=== PATIENT | female | born 2000 | race Caucasian/White ===

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

== ENCOUNTER 2021-02-10 20:31 | Emergency (ER) | payer OTHER ==
[~2021-02-10] VITALS: Ht 167.6 cm; Wt 88.5 kg
[2021-02-10 20:33] VITALS: BP 161/84
--- NOTE | 2021-02-10 22:40 | NUR ---
PT TAKEN TO BED #12
[2021-02-10 22:43] LABS: BASOPHILS # (AUTO) 0.1 K/uL (0.00-0.22); BASOPHILS % (AUTO) 0.4 % (0.0-2.0); EOSINOPHILS # (AUTO) 0.2 K/uL (0-0.4); EOSINOPHILS % (AUTO) 1.6 % (0.0-4.0); HEMATOCRIT 31.8 % (36-48); HEMOGLOBIN 10.2 g/dL (12.0-16.0); LYMPHOCYTES % (AUTO) 29.4 % (20.5-51.1); MEAN CORPUSCULAR HEMOGLOBIN 25 pg (27-31); MEAN CORPUSCULAR HGB CONC 32 g/dL (33-37); MONOCYTES # (AUTO) 0.6 K/uL (0.8-1.0); MONOCYTES % (AUTO) 4.8 % (1.7-9.3); NEUTROPHILS # (AUTO) 8.6 K/uL (1.8-7.7); NEUTROPHILS % (AUTO) 63.8 % (42.2-75.2); PLATELET COUNT (AUTO) 426 K/uL (140-450); RED BLOOD CELL COUNT(AUTO) 4.08 MIL/uL (4.20-5.40); WHITE BLOOD COUNT (AUTO) 13.5 K/uL (4.5-11.0)
--- NOTE | 2021-02-10 22:52 | NUR ---
US AT BEDSIDE PELVIC EXAM SET PLACED AT BESIDE.
[2021-02-10 23:04] LABS: ALBUMIN 3.6 g/dL (3.4-5.0); ANION GAP 11.2 (8-16); CARBON DIOXIDE 26.9 mmol/L (21-32); CREATININE 0.7 mg/dL (0.6-1.3); POTASSIUM 4.1 mmol/L (3.5-5.1); TOTAL BILIRUBIN 0.2 mg/dL (0.0-1.0)
--- NOTE | 2021-02-11 00:48 | NUR ---
Female Boiler Plant Operator accompanied female patient for Pelvic Exam.
--- NOTE | 2021-02-11 01:00 | NUR ---
patient agreed to transvaginal ultrasound at this time, ultrasound advised.
--- NOTE | 2021-02-11 01:17 | NUR ---
ULTRASOUND AT BEDSIDE.
[2021-02-11 04:37] VITALS: BP 108/51
--- NOTE | 2021-02-11 04:37 | NUR ---
patient cleared at this time for discharge. denies any further complaints or concerns. advised to follow up with pcp and return if condition worsens. ultrasound report provided in discharge teaching.
== END 2021-02-11 04:37 | disposition home or self-care (01) ==
LOC: MED 20:31
DX: N93.9 Abnormal uterine and vaginal bleeding, unspecified (principal)
CPT/HCPCS: 36415; 76830; 80053; 81002; 81025; 85025; 86900; 86901; 99284; Q0092

== ENCOUNTER 2021-06-16 09:30 | Emergency (ER) | payer OTHER ==
[~2021-06-16] VITALS: Ht 167.6 cm; Wt 104.8 kg
[2021-06-16 09:43] VITALS: BP 154/87
--- NOTE | 2021-06-16 10:25 | NUR ---
21 Y/O FEMALE C/O R EAR LOBE PAIN XTHIS MORNING. PT REPORTS HAVING NEW PIERCING X3 WEEKS AGO AND WOKE UP THIS MORNING TO PAIN, REDNESS, SWELLING AND SCAB COVERING EARRING. PT RATES PAIN 9/10 THAT SHE DESCRIBES THROBBING AND "FEELS LIKE ITS ON FIRE". PT REPORTS FEVER OF 101 THIS MORNING AND TOOK TYLENOL, FEVER WENT AWAY BUT PAIN IS STILL PRESENT. PT REPORTS CLEANING EARRING DIRECTED. PT A/O X4 WITH EVEN AND UNLABORED RESPIRATIONS. PMH:DENIES NKDA
--- NOTE | 2021-06-16 10:43 | NUR ---
DR ELIAS AT BEDSIDE EVALUATING PT
[2021-06-16] MEDS ORDERED: LIDOCAINE MPF 1% 10 MG/ML VIAL INJ ONE (11:00)
--- NOTE | 2021-06-16 11:50 | NUR ---
DR ELIAS AT BEDSIDE FOR PROCEDURE
[2021-06-16] MEDS ORDERED: CEPH-588 PO (11:58)
[2021-06-16] MEDS ORDERED: NAPR-1704 PO (11:58)
[2021-06-16 12:08] VITALS: BP 132/73
--- NOTE | 2021-06-16 12:08 | NUR ---
Patient discharged with v/s stable. Written and verbal after care instructions ABOUT SKIN FOREIGN BODT AND CELLULITIS given and explained. Patient alert, oriented and verbalized understanding of instructions. Ambulatory with steady gait. All questions addressed prior to discharge. ID band removed. Patient advised to follow up with PMD. Rx of KEFLEX AND NAPROXEN given. Patient educated on indication of medication including possible reaction and side effects. Opportunity to ask questions provided and answered.
== END 2021-06-16 12:08 | disposition home or self-care (01) ==
LOC: MED 09:30
DX: S00.451A Superficial foreign body of right ear, initial encounter (principal); X58.XXXA Exposure to other specified factors, initial encounter; Y93.89 Activity, other specified; Y92.89 Other specified places as the place of occurrence of the external cause; Y99.8 Other external cause status
CPT/HCPCS: 10120; 99284; J2001

== ENCOUNTER 2021-11-17 15:49 | Observation (INO) | payer OTHER ==
[~2021-11-17] VITALS: Ht 167.6 cm; Wt 101.6 kg
[~2021-11-17 15:49] MED LIST: CEPH-588 PO; NAPR-1704 PO
[2021-11-17 15:53] VITALS: BP 134/68
--- NOTE | 2021-11-17 16:01 | NUR ---
Holly araujo in [facility] - 11/17/21 at 1603 by MED1 PT AMB TO BED 1.
--- NOTE | 2021-11-17 16:02 | NUR ---
PT AMBULATED TO ER BED 8
[2021-11-17] MEDS ORDERED: NACL 0.9% 1,000 ML IV ONE (16:05)
--- NOTE | 2021-11-17 16:17 | NUR ---
21YO FEMALE PT C/O VAGINAL BLEEDING X5 WEEKS. PT STATES INITIAL BLEEDING STARTED September AND HAS BEEN COMSISTENT SINCE, NOTES 1IN BLOOD CLOTS. ALSO C/O CRAMPING 10/10 PELVIC PAIN ALONG WITH NEW ONSET OF 7/10 TIGHTNESS IN CHEST XTODAY. STATES MILD RELIEF AFTER TAKING IBUPROFEN. MILD DIZZINESS, DENIES N/V/D OR SOB. PT HAS PENDING EQUINE MANAGER APPT ON Nov BUT WAS TOLD BY PCP TO COME TO ER IF SHE HAD ONSET OF CHEST PAIN. NOTES PREVIOUS SIMILIAR SYMPTOMS THAT LASTED FROM December TO February. REPORTS INCREASE IN FATIGUENESS AND SOB WHEN DOING " SIMPLE ACTIVITIES". PT AAOX4, RESPIRATIONS EVEN AND UNLABORED AND ON [employer] PROMOTER. . AMBULATORY W/ STEADY GAIT. BED AT LOWEST POSITION, BED RAIL UP X2. HX: DENIES NKA
[2021-11-17 16:32] LABS: BASOPHILS # (AUTO) 0.1 K/uL (0.00-0.22); BASOPHILS % (AUTO) 0.6 % (0.0-2.0); EOSINOPHILS # (AUTO) 0.1 K/uL (0-0.4); EOSINOPHILS % (AUTO) 0.8 % (0.0-4.0); HEMATOCRIT 21.8 % (36-48); LYMPHOCYTES # (AUTO) 3.6 K/uL (2.5-16.5); LYMPHOCYTES % (AUTO) 24.1 % (20.5-51.1); MEAN CORPUSCULAR HEMOGLOBIN 18 pg (27-31); MEAN CORPUSCULAR HGB CONC 30 g/dL (33-37); MEAN CORPUSCULAR VOLUME 61.2 fL (80-94); MONOCYTES # (AUTO) 0.6 K/uL (0.8-1.0); MONOCYTES % (AUTO) 4.2 % (1.7-9.3); NEUTROPHILS # (AUTO) 10.4 K/uL (1.8-7.7); NEUTROPHILS % (AUTO) 70.3 % (42.2-75.2); PLATELET COUNT (AUTO) 517 K/uL (140-450); RED BLOOD CELL COUNT(AUTO) 3.56 MIL/uL (4.20-5.40); RED CELL DISTRIBUTION WIDTH 20.4 % (11.6-13.7); WHITE BLOOD COUNT (AUTO) 14.8 K/uL (4.5-11.0)
[2021-11-17 16:41] LABS: HEMOGLOBIN 6.4 g/dL (12.0-16.0)
--- NOTE | 2021-11-17 16:42 | NUR ---
MD SNOW AT BEDSIDE
[2021-11-17 16:51] LABS: ANION GAP 12.8 (8-16); CARBON DIOXIDE 23.2 mmol/L (21-32); CREATININE 0.7 mg/dL (0.6-1.3)
--- NOTE | 2021-11-17 17:12 | NUR ---
RAD AT BEDSIDE
[2021-11-17 17:22] LABS: APPEARANCE,URINE SL CLOUDY (CLEAR); BILIRUBIN,URINE NEGATIVE (NEGATIVE); BLOOD, URINE 3+ (NEGATIVE); COLOR,URINE AMBER (YELLOW); LEUKOCYTE ESTERASE ,URINE TRACE (NEGATIVE); NITRITE, URINE NEGATIVE (NEGATIVE); UGLUCOSE NEGATIVE (NEGATIVE)
[2021-11-17] MEDS ORDERED: FERR325E14 PO (17:24)
[2021-11-17] MEDS ORDERED: VITD400 PO (17:25)
[2021-11-17 17:49] LABS: RBC,URINE 11-20 (MOD) /HPF (0-5)
[2021-11-17 17:50] LABS: WBC,URINE 0-5 /HPF (0-5)
[2021-11-17 17:51] LABS: OTHER CASTS, URINE None Seen /LPF (None Seen)
[2021-11-17] MEDS ORDERED: MAGNESIUM OXIDE 400 MG TAB PO PRN (18:15)
[2021-11-17] MEDS ORDERED: MORPHINE SULFATE 4 MG/ML SYR IVP PRN (18:15)
[2021-11-17] MEDS ORDERED: ONDANSETRON 4 MG/2 ML VIAL IVP PRN (18:15)
[2021-11-17] MEDS ORDERED: ACETAMINOPHEN 325 MG TAB PO PRN (18:15)
[2021-11-17] MEDS ORDERED: KCL 20 MEQ/WATER INJ PREMIX 200 ML IV PRN (18:15)
[2021-11-17] MEDS ORDERED: POTASSIUM CHLORIDE 10 MEQ TABER PO PRN (18:15)
[2021-11-17] MEDS ORDERED: HYDROcodone/APAP 5/325 MG 1 TAB TAB PO PRN (18:15)
[2021-11-17] MEDS ORDERED: MAG SULF 2000 MG/WATER PREMIX 50 ML IV PRN (18:15)
--- NOTE | 2021-11-17 19:28 | NUR ---
REPORT GIVEN TO LAWRENCE MILLER. ALL QUESTION ANSWERED. TRANSFER OF CARE AT THIS TIME
--- NOTE | 2021-11-17 20:39 | NUR ---
2036 - pt reported pain and itching at site , right ac. vss . transfusion stopped. doctor notified . will carry out orders, will continue to monitor
[2021-11-17] MEDS ORDERED: diphenhydrAMINE 50 MG/ML VIAL IVP ONE (20:40)
--- NOTE | 2021-11-17 21:08 | NUR ---
Patient will be admitted to care of [facility]. Admited to MED-SURG. Will go to rooM 2108. Belongings list completed. Report to JAGDEEP.
--- NOTE | 2021-11-17 21:08 | NUR ---
Chart checked and completed.
--- NOTE | 2021-11-17 21:15 | NUR ---
RECEIVED PATIENT FROM ER NURSE VIA [facility] FOR CONTINUITY OF CARE. PATIENT IS ALERT ORIENTED X4, IV ON RIGHT AC INTACT AND PATENT, ADMITTED FOR VAGINAL BLEEDING, 1 UNIT PRBC RUNNING AT THIS TIME, NO ADVERSE REACTIONS NOTED.WILL CONTINUE TO MONITOR
[2021-11-18] VITALS: BP 120/52
--- NOTE | 2021-11-18 01:00 | NUR ---
BLOOD TRANSFUSION FINISHED,NO ADVERSE REACTIONS NOTED
[2021-11-18 03:54] LABS: HEMATOCRIT 23.6 % (36-48)
[2021-11-18 04:00] VITALS: BP 116/69
--- NOTE | 2021-11-18 04:00 | NUR ---
MESSAGED DR ED SCHMID RESULT OF HGB OF 7.0, AWAITING RESPONSE
--- NOTE | 2021-11-18 06:00 | NUR ---
PATIENT ASLEEP,NO S/SX OF DISTRESS NOTED
[2021-11-18 07:12] LABS: BASOPHILS % (AUTO) 0.4 % (0.0-2.0); EOSINOPHILS # (AUTO) 0.2 K/uL (0-0.4); EOSINOPHILS % (AUTO) 1.3 % (0.0-4.0); HEMATOCRIT 23.2 % (36-48); HEMOGLOBIN 7.2 g/dL (12.0-16.0); LYMPHOCYTES # (AUTO) 3.6 K/uL (2.5-16.5); LYMPHOCYTES % (AUTO) 30.5 % (20.5-51.1); MEAN CORPUSCULAR HEMOGLOBIN 20 pg (27-31); MEAN CORPUSCULAR HGB CONC 31 g/dL (33-37); MEAN CORPUSCULAR VOLUME 64.4 fL (80-94); MONOCYTES # (AUTO) 0.5 K/uL (0.8-1.0); MONOCYTES % (AUTO) 4.5 % (1.7-9.3); NEUTROPHILS # (AUTO) 7.4 K/uL (1.8-7.7); NEUTROPHILS % (AUTO) 63.3 % (42.2-75.2); PLATELET COUNT (AUTO) 431 K/uL (140-450); RED CELL DISTRIBUTION WIDTH 23.5 % (11.6-13.7); WHITE BLOOD COUNT (AUTO) 11.7 K/uL (4.5-11.0)
[2021-11-18 07:21] LABS: ALBUMIN 2.9 g/dL (3.4-5.0); CARBON DIOXIDE 25.1 mmol/L (21-32); CREATININE 0.8 mg/dL (0.6-1.3); MAGNESIUM 2.1 mg/dL (1.8-2.4); POTASSIUM 4.1 mmol/L (3.5-5.1); TOTAL BILIRUBIN 0.5 mg/dL (0.0-1.0)
--- NOTE | 2021-11-18 07:35 | NUR ---
RECEIVED REPORT FROM ROAD MACHINE RUNNER NURSE FOR CONTINUITY OF CARE. PATIENT LYING DOWN IN BED SLEEPING, AROUSABLE BY VOICE. NO DISTRESS NOTED. DENIES ANY PAIN. CONTINUES TO FEEL DIZZINESS. IV SITE INTACT, PATENT, ON SALINE LOCK. AAO4, ROOM AIR. REVIEWED PLAN OF CARE WITH PATIENT. SAFETY MEASURES IN PLACE, CALL LIGHT WITHIN REACH. WILL CONTINUE TO MONITOR.
[2021-11-18 08:00] VITALS: BP 105/56
--- NOTE | 2021-11-18 08:44 | NUR ---
COMPLAINS OF NAUSEA, ZOFRAN GIVEN AT THIS TIME. OTHER SCHEDULED MEDICATIONS DUE GIVEN. WILL CONTINUE TO MONITOR.
[2021-11-18] MEDS ORDERED: medroxyPROGESTERone 10 MG TAB PO SCH (09:00)
--- NOTE | 2021-11-18 09:20 | NUR ---
PATIENT HAS BEEN SCREENED AND CATEGORIZED LOW NUTRITION RISK. PATIENT WILL BE SEEN WITHIN 7 DAYS OF ADMISSION. 11/25/[address] BEBO [address]
--- NOTE | 2021-11-18 11:50 | NUR ---
PATIENT LYING DOWN IN BED, SLEEPING, AROUSABLE BY VOICE. NO DISTRESS NOTED. DENIES PAIN. AWAITING FOR 1 UNIT PRBC. WILL CONTINUE TO MONITOR.
--- NOTE | 2021-11-18 14:24 | NUR ---
DC PLANNING CEM MET WITH PATIENT AT BEDSIDE TO COMPLETE ASSESSMENT. PATIENT REPORTS RESIDING AT THE ADDRESS ON FILE WITH HER PARENTS. PATIENT IDENTIFIES ARIK KUHN, MOTHER [phone] EMERGENCY CONTACT AND MDM. PATIENT DENIES HAVING AD IN PLACE AND DECLINED AD OFFERED BY CEM. PATIENT REPORTS MEETING WITH , NEEDED. LAST VISIT; 11/16. PATIENT PROVIDED SW W/PERMISSION TO SCHEDULE FOLLOW UP APPT, ONCE CLEARED FOR DC. PATIENT REPORTS TAKING VITAMIN D AND IRON PILLS. PATIENT REPORTS PICKING UP MEDICATION FROM [employer] ON [address] IN [place], WHEN NEEDED. PATIENT DENIES BARRIERS IN ACCESSING MEDICATIONS. PATIENT REPORTS ADEQUATE FOOD SOURCE AND APPROPRIATE SUPPORT SYSTEM. PATIENT REPORT BEING INDEPENDENT IN ALL ACTIVITIES. PATIENT REPORTS PREVIOUS PSYCHIATRIC HOSPITALIZATION WHEN IN HS. PATIENT DENIES CURRENT SI/HI. PATIENT DENIES FORMAL MENTAL HEALTH DX. PATIENT DENIES SA HX. PATIENT REPORTS DC PLAN IS TO RETURN HOME WITH FAMILY PROVIDING TRANSPORTATION AND NEEDED CARE, IF REQUIRED. Addendum: 11/19/21 at 1012 by Meme Osborne CEM OUTREACHED TO PATIENTS PCP OFFICE AT [phone]. CEM SPOKE WITH FRANSISCO, VIRTUAL APPT SCHEDULED FOR 11/25/21 BETWEEN 2-[address] CARTER. FRANSISCO REPORTED OFFICE WOULD CALL PATIENT WITH EXACT TIME OF VIRTUAL APPT. PATIENT WAS PROVIDED WITH APPT DETAILS THAT INCLUDED; DATE, TIME, PHONE NUMBER AND
[2021-11-18] MEDS ORDERED: diphenhydrAMINE 50 MG/ML VIAL IVP SCH (15:00)
--- NOTE | 2021-11-18 15:00 | NUR ---
1 UNIT PRBC STARTED. WILL CONTINUE TO MONITOR PER PROTOCOL.
[2021-11-18 16:00] VITALS: BP 99/62
--- NOTE | 2021-11-18 17:30 | NUR ---
1 UNIT PRBC COMPLETED. NO REACTIONS NOTED. WILL CONTINUE TO MONITOR.
--- NOTE | 2021-11-18 18:05 | NUR ---
DISCHARGE INSTRUCTIONS PROVIDED TO PATIENT IN PREFERRED LANGUAGE OF PORTUGUESE. INSTRUCTIONS ON FOLLOW-UP WITH PCP AND OBGYN PROVIDED, MEDICATION REGIMEN AND SIDE EFFECTS, AND DIET REGIMEN. ANSWERED ALL OF PATIENT'S QUESTIONS REGARDING DISCHARGE. IV SITE REMOVED WITH MINIMAL BLOOD AND LUMEN COMPLETELY INTACT. PATIENT'S MOTHER AT BEDSIDE READY TO TAKE PATIENT HOME. ESCORTED PATIENT DOWN TO LOBBY VIA STEADY AMBULATION. PATIENT DISCHARGED AT THIS TIME IN STABLE CONDITION.
== END 2021-11-18 18:05 | disposition home or self-care (01) ==
LOC: MED 15:49 → MMU 18:18 → MTU 20:44
PROVIDERS: ADMIT Hospitalist; ATTEND Hospitalist
DX: N93.9 Abnormal uterine and vaginal bleeding, unspecified (principal); Z20.822 Contact with and (suspected) exposure to COVID-19; N92.1 Excessive and frequent menstruation with irregular cycle; D62 Acute posthemorrhagic anemia; R42 Dizziness and giddiness; E66.01 Morbid (severe) obesity due to excess calories; Z79.899 Other long term (current) drug therapy
CPT/HCPCS: 36415; 36430; 71045; 80048; 80053; 81001; 83735; 85018; 85025; 86886; 86900; 86901; 86920; 87081; 87426; 96361; 96374; 96375; 99284; G0378; J1200; J2405; P9016; 93005

== ENCOUNTER 2022-06-26 12:46 | Emergency (ER) | payer OTHER ==
[~2022-06-26] VITALS: Ht 165.1 cm; Wt 96.6 kg
[~2022-06-26 12:46] MED LIST changes: -CEPH-588 PO; +FERR325E14 PO; -NAPR-1704 PO; +VITD400 PO
[2022-06-26 12:51] VITALS: BP 134/74
--- NOTE | 2022-06-26 12:57 | NUR ---
pt ambulatory to bed 11
[2022-06-26] MEDS ORDERED: ONDANSETRON 4 MG ODT PO ONE (13:40)
[2022-06-26 14:03] LABS: BASOPHILS # (AUTO) 0.3 K/uL (0.00-0.22); BASOPHILS % (AUTO) 2.5 % (0.0-2.0); EOSINOPHILS # (AUTO) 0.1 K/uL (0-0.4); EOSINOPHILS % (AUTO) 0.6 % (0.0-4.0); HEMATOCRIT 35.2 % (36-48); HEMOGLOBIN 10.8 g/dL (12.0-16.0); LYMPHOCYTES # (AUTO) 2.1 K/uL (2.5-16.5); LYMPHOCYTES % (AUTO) 17.6 % (20.5-51.1); MEAN CORPUSCULAR HEMOGLOBIN 22 pg (27-31); MEAN CORPUSCULAR HGB CONC 31 g/dL (33-37); MEAN CORPUSCULAR VOLUME 72.4 fL (80-94); MONOCYTES # (AUTO) 0.9 K/uL (0.8-1.0); MONOCYTES % (AUTO) 7.6 % (1.7-9.3); NEUTROPHILS # (AUTO) 8.6 K/uL (1.8-7.7); NEUTROPHILS % (AUTO) 71.7 % (42.2-75.2); PLATELET COUNT (AUTO) 387 K/uL (140-450); RED BLOOD CELL COUNT(AUTO) 4.86 MIL/uL (4.20-5.40); RED CELL DISTRIBUTION WIDTH 17.3 % (11.6-13.7)
[2022-06-26 14:51] LABS: ALBUMIN 3.1 g/dL (3.4-5.0); ANION GAP 13.6 (8-16); ASPARTATE AMINOTRANSFERASE 27 U/L (15-37); CHLORIDE 107 mmol/L (98-107); CREATININE 0.8 mg/dL (0.6-1.3); GFR ARICAN-AMERICAN 116 mL/min (>90); GLUCOSE 102 mg/dL (74-106); POTASSIUM 3.6 mmol/L (3.5-5.1); SODIUM SERUM 142 mmol/L (136-145); TOTAL BILIRUBIN 0.4 mg/dL (0.0-1.0); UREA NITROGEN, BLOOD 10 mg/dL (7-18)
[2022-06-26] MEDS ORDERED: ONDA-188 SL (15:05)
[2022-06-26] MEDS ORDERED: FERR325E14 PO (15:05)
[2022-06-26 15:15] VITALS: BP 134/74
--- NOTE | 2022-06-26 15:16 | NUR ---
Patient discharged with v/s stable. Written and verbal after care instructions given and explained. Patient alert, oriented and verbalized understanding of instructions. Ambulatory with steady gait. All questions addressed prior to discharge. ID band removed. Patient advised to follow up with PMD. Rx of ZOFRAN, FERROUS SULFATE (SENT) given. Patient educated on indication of medication including possible reaction and side effects. Opportunity to ask questions provided and answered.
== END 2022-06-26 15:13 | disposition home or self-care (01) ==
LOC: MED 12:46
DX: D64.9 Anemia, unspecified (principal); F41.0 Panic disorder [episodic paroxysmal anxiety]; Z79.899 Other long term (current) drug therapy
CPT/HCPCS: 36415; 80053; 84484; 85025; 93005; 99284; Q0162

== ENCOUNTER 2022-12-22 | Emergency (ER) | payer OTHER ==
[~2022-12-22] VITALS: Ht 167.6 cm; Wt 91.6 kg
[~2022-12-22] MED LIST changes: +ONDA-188 SL
[2022-12-22 00:04] VITALS: BP 124/64; PULSE 95; RESP 16; TEMP 97.3; O2SAT 100
[2022-12-22] MEDS ORDERED: KETOROLAC 60 MG/2 ML VIAL IM ONE (01:35)
[2022-12-22] MEDS ORDERED: IBUP-2213 PO (01:42)
[2022-12-22] MEDS ORDERED: ACET-8905 PO ×2 (01:42→01:43)
== END 2022-12-22 01:52 | disposition home or self-care (01) ==
LOC: MED
DX: S83.8X2A Sprain of other specified parts of left knee, initial encounter (principal); X58.XXXA Exposure to other specified factors, initial encounter; Y93.89 Activity, other specified; Y92.89 Other specified places as the place of occurrence of the external cause; Y99.8 Other external cause status
CPT/HCPCS: 73562; 81025; 96372; 99283; J1885

== ENCOUNTER 2023-10-12 03:50 | Emergency (ER) | payer OTHER ==
[~2023-10-12] VITALS: Ht 165.1 cm; Wt 87.5 kg
[~2023-10-12 03:50] MED LIST changes: +ACET-8905 PO; +IBUP-2213 PO
[2023-10-12 03:53] VITALS: BP 110/62; PULSE 72; RESP 16; TEMP 97.4; O2SAT 100
[2023-10-12] MEDS: NACL 0.9% 1,000 ML IV ONE (05:27)
[2023-10-12] MEDS: MORPHINE SULFATE 4 MG/ML SYR IVP ONE (05:53)
[2023-10-12 05:54] LABS: BASOPHILS # (AUTO) 0.1 K/uL (0.00-0.22); BASOPHILS % (AUTO) 0.5 % (0.0-2.0); EOSINOPHILS # (AUTO) 0.2 K/uL (0-0.4); EOSINOPHILS % (AUTO) 1.3 % (0.0-4.0); HEMATOCRIT 38.4 % (36-48); HEMOGLOBIN 12.6 g/dL (12.0-16.0); LYMPHOCYTES # (AUTO) 3.8 K/uL (2.5-16.5); MEAN CORPUSCULAR HEMOGLOBIN 27 pg (27-31); MEAN CORPUSCULAR HGB CONC 33 g/dL (33-37); MEAN CORPUSCULAR VOLUME 82.7 fL (80-94); MONOCYTES # (AUTO) 0.7 K/uL (0.8-1.0); MONOCYTES % (AUTO) 6.2 % (1.7-9.3); NEUTROPHILS # (AUTO) 6.7 K/uL (1.8-7.7); PLATELET COUNT (AUTO) 272 K/uL (140-450); RED BLOOD CELL COUNT(AUTO) 4.64 MIL/uL (4.20-5.40); RED CELL DISTRIBUTION WIDTH 14.8 % (11.6-13.7); WHITE BLOOD COUNT (AUTO) 11.4 K/uL (4.8-10.8)
[2023-10-12 06:15] LABS: ANION GAP 14.1 (8-16); CALCIUM 8.8 mg/dL (8.5-10.1); CARBON DIOXIDE 22.7 mmol/L (21-32); CREATININE 0.6 mg/dL (0.6-1.3); POTASSIUM 3.8 mmol/L (3.5-5.1)
[2023-10-12 06:16] LABS: BILIRUBIN,URINE NEGATIVE (NEGATIVE); BLOOD, URINE NEGATIVE (NEGATIVE); COLOR,URINE YELLOW (YELLOW); LEUKOCYTE ESTERASE ,URINE TRACE (NEGATIVE); PH,URINE 6.5 (5.0-9.0); PROTEIN,URINE NEGATIVE (NEGATIVE); UGLUCOSE NEGATIVE (NEGATIVE); UROBILINOGEN,URINE 0.2 EU/dL (0.2 - 1)
[2023-10-12 06:17] LABS: ALBUMIN 3.3 g/dL (3.4-5.0); BILIRUBIN,DIRECT 0.1 mg/dL (0.0-0.3); TOTAL BILIRUBIN 0.3 mg/dL (0.0-1.0); TOTAL PROTEIN, SERUM 7.5 g/dL (6.4-8.2)
[2023-10-12 07:08] LABS: RBC,URINE 0-5 /HPF (0-5); SQUAMOUS EPITHELIAL CELL,UR 4-10 (MOD) /LPF (0-3 (FEW))
[2023-10-12 07:10] LABS: BACTERIA,URINE 1+ /HPF (None Seen); NITRITE, URINE POSITIVE (NEGATIVE); WBC,URINE 0-5 /HPF (0-5)
[2023-10-12 07:12] LABS: APPEARANCE,URINE SLIGHTLY HAZY (CLEAR)
[2023-10-12 07:20] VITALS: BP 128/50; PULSE 77; RESP 20; O2SAT 99
== END 2023-10-12 07:20 | disposition home or self-care (01) ==
LOC: MED 03:50
DX: R10.33 Periumbilical pain (principal); Z79.1 Long term (current) use of non-steroidal anti-inflammatories (NSAID); Z79.899 Other long term (current) drug therapy
CPT/HCPCS: 36415; 74176; 80048; 80076; 81001; 81025; 85025; 87040; 96361; 96374; 99285; J2270; J7030

== ENCOUNTER 2023-12-11 12:23 | Emergency (ER) | payer OTHER ==
[~2023-12-11] VITALS: Ht 157.5 cm; Wt 87.5 kg
[2023-12-11 12:38] VITALS: BP 113/71; PULSE 97; RESP 16; TEMP 98.3; O2SAT 97
[2023-12-11] MEDS ORDERED: ALUMINUM HYD/MAG/SIMETHICONE 30 ML UDC ONE (13:03)
[2023-12-11] MEDS ORDERED: DICYCLOMINE HCL LIQUID 10 MG/5 ML UDC ONE (13:03)
[2023-12-11] MEDS: ONDANSETRON 4 MG ODT PO ONE (13:09)
[2023-12-11] MEDS: DICYCLOMINE HCL LIQUID 20 MG, ALUMINUM HYD/MAG/SIMETHICONE 30 ML, LIDOCAINE VISCOUS 2% ... PO ONE (13:12)
[2023-12-11 13:30] VITALS: O2SAT 97
[2023-12-11 13:33] LABS: BASOPHILS % (AUTO) 0.3 % (0.0-2.0); EOSINOPHILS % (AUTO) 0.2 % (0.0-4.0); HEMATOCRIT 40.3 % (36-48); HEMOGLOBIN 13.2 g/dL (12.0-16.0); LYMPHOCYTES # (AUTO) 1.8 K/uL (2.5-16.5); LYMPHOCYTES % (AUTO) 17.5 % (20.5-51.1); MEAN CORPUSCULAR HEMOGLOBIN 27 pg (27-31); MEAN CORPUSCULAR HGB CONC 33 g/dL (33-37); MEAN CORPUSCULAR VOLUME 81.6 fL (80-94); MONOCYTES # (AUTO) 0.4 K/uL (0.8-1.0); MONOCYTES % (AUTO) 4.4 % (1.7-9.3); NEUTROPHILS # (AUTO) 7.8 K/uL (1.8-7.7); NEUTROPHILS % (AUTO) 77.6 % (42.2-75.2); PLATELET COUNT (AUTO) 308 K/uL (140-450); RED BLOOD CELL COUNT(AUTO) 4.93 MIL/uL (4.20-5.40); RED CELL DISTRIBUTION WIDTH 14.9 % (11.6-13.7); WHITE BLOOD COUNT (AUTO) 10.1 K/uL (4.8-10.8)
[2023-12-11 13:41] LABS: ANION GAP 12.1 (8-16); CARBON DIOXIDE 26.8 mmol/L (21-32); CREATININE 0.8 mg/dL (0.6-1.3); POTASSIUM 3.9 mmol/L (3.5-5.1)
[2023-12-11] MEDS ORDERED: FAMO-90 PO (14:30)
[2023-12-11] MEDS ORDERED: ONDA-188 PO (14:30)
[2023-12-11] MEDS ORDERED: MAG-27 PO (14:30)
[2023-12-11 14:33] LABS: BILIRUBIN,URINE NEGATIVE (NEGATIVE); BLOOD, URINE NEGATIVE (NEGATIVE); COLOR,URINE YELLOW (YELLOW); LEUKOCYTE ESTERASE ,URINE TRACE (NEGATIVE); NITRITE, URINE NEGATIVE (NEGATIVE); PROTEIN,URINE NEGATIVE (NEGATIVE); UGLUCOSE NEGATIVE (NEGATIVE)
[2023-12-11 14:34] LABS: APPEARANCE,URINE SLIGHTLY HAZY (CLEAR)
[2023-12-11 14:37] LABS: BACTERIA,URINE 2+ /HPF (None Seen); MUCUS,URINE 1+ /LPF (None Seen); SQUAMOUS EPITHELIAL CELL,UR 4-10 (MOD) /LPF (0-3 (FEW))
[2023-12-11] MEDS ORDERED: NITR100C7 PO (14:41)
== END 2023-12-11 14:57 | disposition home or self-care (01) ==
LOC: MED 12:23
DX: N39.0 Urinary tract infection, site not specified (principal); Z79.899 Other long term (current) drug therapy
CPT/HCPCS: 36415; 80048; 81001; 81025; 83690; 85025; 87086; 99284; Q0162